=== PATIENT | male | born 1940 | race Caucasian/White ===

== ENCOUNTER 2022-12-12 06:28 | Inpatient (IN) ==
--- NOTE | 2022-11-10 12:29 | PAT Medication Instructions ---
Medication Instructions Date of Service November 10, 2022 Home Medications allopurinol 100 mg tablet 150 mg PO QAM apixaban 5 mg tablet (Eliquis) 5 mg PO HS ascorbic acid (vitamin C) 500 mg tablet (Vitamin C) 500 mg PO QAM celecoxib 200 mg capsule 200 mg PO UD PRN Pain cholecalciferol (vitamin D3) 50 mcg (2,000 unit) capsule (Vitamin D3) 50 mcg PO QAM clopidogrel 75 mg tablet (Plavix) 75 mg PO QAM donepezil 5 mg tablet 5 mg PO HS evolocumab 140 mg/mL subcutaneous pen injector (Repatha SureClick) 140 mg subcut UD furosemide 40 mg tablet (Lasix) 40 mg PO QAM glimepiride 2 mg tablet 2 mg PO QAM losartan 100 mg tablet 100 mg PO HS metoprolol succinate 25 mg tablet,extended release 24 hr 25 mg PO QAM vitamin A-vitamin C-vit E-min tablet 1 tab PO QAM zinc 50 mg tablet 50 mg PO QAM ASK your surgeon for instructions celecoxib 200 mg capsule 200 mg PO UD PRN Pain ASK your prescriber and surgeon apixaban 5 mg tablet (Eliquis) 5 mg PO HS (for spinal anesthesia: will need to hold Eliquis/apixaban at least 72 hours prior to surgery) clopidogrel 75 mg tablet (Plavix) 75 mg PO QAM (for spinal anesthesia: will need to hold Plavix/clopidogrel for at least 7 days prior to surgery) STOP taking 2 weeks before surgery vitamin A-vitamin C-vit E-min tablet 1 tab PO QAM DO NOT take the morning of surgery furosemide 40 mg tablet (Lasix) 40 mg PO QAM ascorbic acid (vitamin C) 500 mg tablet (Vitamin C) 500 mg PO QAM glimepiride 2 mg tablet 2 mg PO QAM zinc 50 mg tablet 50 mg PO QAM cholecalciferol (vitamin D3) 50 mcg (2,000 unit) capsule (Vitamin D3) 50 mcg PO QAM Take morning of surgery With a small sip of water, OTHERWISE NOTHING TO EAT OR DRINK AFTER MIDNIGHT: allopurinol 100 mg tablet 150 mg PO QAM Take evening before surgery losartan 100 mg tablet 100 mg PO HS metoprolol succinate 25 mg tablet,extended release 24 hr 25 mg PO QAM donepezil 5 mg tablet 5 mg PO HS Other Notes CHECK WITH YOUR PRESCRIBER FOR INSTRUCTIONS: evolocumab 140 mg/mL subcutaneous pen injector (Repatha SurePérezick) 140 mg subcut UD If you have any questions please call us at [phone] or [phone] or or [phone]
--- NOTE | 2022-11-17 12:30 | Anesthesiology Consultation ---
Date of Service November 17, 2022 Assessment & Plan (1) Encounter for pre-operative examination: - check BSG am DOS. - upcoming PCP pre-op evaluation 11/24/22. - upcoming cardiology pre-op evaluation 12/05/22. - patient has dementia, is accompanied by caregiver today who will also be pres ent DOS. - Outpatient joint assessment: Patient is currently scheduled for inpatient pathway. If re-evaluated pending system levels during current pandemic/surgeon requests outpatient pathway, patient is not acceptable candidate for outpatient joint program from anesthesia standpoint. Chart Review Chart Review: Pending: Refer to Additional Notes / Consult section and Patient seen in Pre Admission Testing Teaching & Discussion Pre-Anesthesia Teaching/Discussion Notes: Instructed NPO after midnight before surgery, except medications with 15 cc of water. Medication instructions provided according to the PAT guidelines. History Surgery Operation Date: 12/12/22 07:35 Proposed Procedures p Right Total Knee Arthroplasty - Rohan Sánchez DO Height/Weight Height: 5 ft 8 in Weight: 113.9 kg Allergies Allergy/AdvReac Type Severity Reaction Status Date / Time ibuprofen Allergy Unknown HIVES Verified 11/10/22 09:29 NSAIDS (Non-Steroidal Allergy Unknown BUMPS ON Verified 11/10/22 09:29 Anti-Inflamma HAND Medications Home Medications Medication Instructions Recorded Confirmed Last Taken allopurinol 100 mg tablet 150 mg PO QAM 11/10/22 11/10/22 Unknown apixaban 5 mg tablet (Eliquis) 5 mg PO HS 11/10/22 11/10/22 Unknown ascorbic acid (vitamin C) 500 mg 500 mg PO QAM 11/10/22 11/10/22 Unknown tablet (Vitamin C) celecoxib 200 mg capsule 200 mg PO UD PRN Pain 11/10/22 11/10/22 Unknown cholecalciferol (vitamin D3) 50 50 mcg PO QAM 11/10/22 11/10/22 Unknown mcg (2,000 unit) capsule (Vitamin D3) clopidogrel 75 mg tablet (Plavix) 75 mg PO QAM 11/10/22 11/10/22 Unknown donepezil 5 mg tablet 5 mg PO HS 11/10/22 11/10/22 Unknown evolocumab 140 mg/mL subcutaneous 140 mg subcut UD 11/10/22 11/10/22 Unknown pen injector (Repatha SureClick) furosemide 40 mg tablet (Lasix) 40 mg PO QAM 11/10/22 11/10/22 Unknown glimepiride 2 mg tablet 2 mg PO QAM 11/10/22 11/10/22 Unknown losartan 100 mg tablet 100 mg PO HS 11/10/22 11/10/22 Unknown metoprolol succinate 25 mg 25 mg PO QAM 11/10/22 11/10/22 Unknown tablet,extended release 24 hr vitamin A-vitamin C-vit E-min 1 tab PO QAM 11/10/22 11/10/22 Unknown tablet zinc 50 mg tablet 50 mg PO QAM 11/10/22 11/10/22 Unknown Past Medical History Medical History Arthritis Dementia EARLY STAGES. HX DR CAMPBELL SEPTEMBER 04 2022. DOES NOT NEED TO FOLLOW WITH NEUROLOGY. Diabetes NIDDM Frequent UTI HX/NONE RECENT. NO CURRENT S/S. GERD (gastroesophageal reflux disease) occasional, stable per pt Hemorrhoids High cholesterol History of gout HTN (hypertension) variable Poor historian Prostate cancer DX 1 MON AGO..11/09 TESTING AND INJECTION AND BONE SCAN. Sleep apnea on CPAP Patient denies h/o stroke, seizures, heart attack, heart failure, blood clots or blood transfusions. Exercise / Class Metabolic Activity IV < 2 Limit ADL/Bedbound (mainly in wheelchair, when does activity: occasional chest discomfort and shortness of breath, ongoing x several yrs, denies change or worsening) Past Family History Family History Grandmother Family history of diabetes mellitus Mother Family history of diabetes mellitus Past Surgical History Surgical History History of amputation of left foot History of colonoscopy History of endoscopy History of heart valve replacement REMOTE HX History of left knee replacement Past Anesthesia History No Hx of Anesthesia Complications and No Family Hx of Anesthesia Complications History of PONV No Hx of PONV and No Hx of Motion Sickness Social History Smoking Status: Never smoker Do You Dip or Chew Tobacco: No Alcohol type: beer alcohol intake frequency: other Alcohol Intake Frequency Comment: 4+ BEER most days of the week Hx Substance Use: No substance use type: does not use Review of Systems Patient denies fever, chills, cough, wheezing, or palpitations. Physical Exam Vital Signs Vitals BP 160/76 P 60 SP02 96% on RA RESP 17 Physical Full cervical extension range of motion without pain TMD 3.5 finger breadths Mallampati Score 3 Dentition: several front upper implants and several caps/crowns; denies chipped or loose teeth or bridges Lungs: normal respiratory effort. Good air movement, clear throughout to auscultation, no adventitious breath sounds Cardiac: regular rate and rhythm, no murmurs noted Carotid arteries: negative bruit bilat Lab Results Anesthesia Preop Results Results Anesthesia Widget: HA1c 7.2 % (4.5-5.6) H 11/17/22 Urine Color Yellow 11/17/22 Urine Appearance Clear (Clear) 11/17/22 Urine pH 5.0 (4.5-7.5) 11/17/22 Urine Specific [place] 1.010 (1.000-1.030) 11/17/22 Urine Protein Negative (Negative) 11/17/22 Urine Glucose (UA) Negative (Negative) 11/17/22 Urine Ketones Negative (Negative) 11/17/22 Urine Blood Negative (Negative) 11/17/22 Urine Nitrite Negative (Negative) 11/17/22 Urine Bilirubin Negative (Negative) 11/17/22 Urine Urobilinogen Negative (Negative) 11/17/22 Urine Leukocyte Esterase Negative (Negative) 11/17/22 Blood Type AB Positive 11/17/22 Antibody Screen NEGATIVE 11/17/22 Testing Laboratory Results 10/07/2022 WBC: 10.7 H/H: 14/43 PLATELETS: 142 SODIUM: 132 POTASSIUM: 4.3 CHLORIDE: 106 CO2: 20 BUN: 12 CREATININE: 1 GLUCOSE: 195 PT: 14.9 PTT: 33 INR: 1.2 Surgeon's office made aware of elevated A1c. Electrocardiogram Date: 09/06/22 Sinus rhythm, rate 58 bpm Nonspecific T wave abnormality Chest X-Ray Date: 11/17/22 No acute cardiopulmonary findings. Cardiomegaly. COVID-19 Risk Screen Screening Information COVID-19 Screen Date: 11/17/22 Exposure 21 Days Family/Household +COVID Last 21 Days: No Exposure 10 Days Any COVID Exposure Last 10 Days: No Symptoms Last 10 Days Experienced COVID Sx Last 10 Days: No + COVID 0-90 Days COVID + in Last 0-90 Days: No
--- NOTE | 2022-11-17 14:52 | History & Physical Report ---
Date of Service November 17, 2022 date of surgery: 12/12/22 Procedure: Right Total Knee Arthroplasty Surgeon: Rohan Sánchez Assessment & Plan (1) Arthritis of right knee: Plan: Patient presents for preop evaluation prior to his right total knee replacement. He has been having pain in his knee for many years now which is gradually worsened and is now affecting his daily activities. 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 At this point time is failed conservative measures and would like to proceed with a right total knee replacement. He does live alone however does have a caregiver and his son lives next door, did discuss postoperative, he would likely need rehab stay versus nursing facility, they would prefer rehab and if unable to get this approved discussed staying at home and having his caregiver stay with him versus staying with his son next-door. He otherwise has no other questions or concerns. Postoperatively we will resume his Eliquis and Plavix. The risks and benefits have been discussed including, but not limited to, risk of infection, nerve injury, stiffness, loss of motion, failure to improve, etc. Reasonable outcomes and options of treatment were discussed. An explanation of appropriate alternatives to the procedure that may be advantageous were discussed and their risks and benefits, as well as the risks and benefits of not proceeding with treatment. I offered to answer any additional inquiries concerning the treatment involved. All the patient's questions were answered. The patient is agreeable, understanding of the treatment plan and alternatives, and wishes to proceed with the treatment plan. History of Present Illness Chief Complaint: Right knee pain Primary Care Provider: SHERI PCP Nick is an 82-year-old male who presents for preop evaluation prior to right total knee replacement. He states he is having pain in his knee for many years now which is gradually worsened and is now affecting his daily activities. 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 He is limited anti-inflammatory use secondary to using Plavix and Eliquis. Allergies Allergy/AdvReac Type Severity Reaction Status Date / Time ibuprofen Allergy Unknown HIVES Verified 11/10/22 09:29 NSAIDS (Non-Steroidal Allergy Unknown BUMPS ON Verified 11/10/22 09:29 Anti-Inflamma HAND Home Medications Medication Instructions Recorded Confirmed Type allopurinol 100 mg tablet 150 mg PO QAM 11/10/22 11/10/22 History apixaban 5 mg tablet (Eliquis) 5 mg PO HS 11/10/22 11/10/22 History ascorbic acid (vitamin C) 500 mg 500 mg PO QAM 11/10/22 11/10/22 History tablet (Vitamin C) celecoxib 200 mg capsule 200 mg PO UD PRN Pain 11/10/22 11/10/22 History cholecalciferol (vitamin D3) 50 50 mcg PO QAM 11/10/22 11/10/22 History mcg (2,000 unit) capsule (Vitamin D3) clopidogrel 75 mg tablet (Plavix) 75 mg PO QAM 11/10/22 11/10/22 History donepezil 5 mg tablet 5 mg PO HS 11/10/22 11/10/22 History evolocumab 140 mg/mL subcutaneous 140 mg subcut UD 11/10/22 11/10/22 History pen injector (Repatha SureClick) furosemide 40 mg tablet (Lasix) 40 mg PO QAM 11/10/22 11/10/22 History glimepiride 2 mg tablet 2 mg PO QAM 11/10/22 11/10/22 History losartan 100 mg tablet 100 mg PO HS 11/10/22 11/10/22 History metoprolol succinate 25 mg 25 mg PO QAM 11/10/22 11/10/22 History tablet,extended release 24 hr vitamin A-vitamin C-vit E-min 1 tab PO QAM 11/10/22 11/10/22 History tablet zinc 50 mg tablet 50 mg PO QAM 11/10/22 11/10/22 History Past Med/Surg History Medical History Arthritis Dementia EARLY STAGES. HX DR CAMPBELL SEPTEMBER 04 2022. DOES NOT NEED TO FOLLOW WITH NEUROLOGY. Diabetes NIDDM Frequent UTI HX/NONE RECENT. NO CURRENT S/S. GERD (gastroesophageal reflux disease) occasional, stable per pt Hemorrhoids High cholesterol History of gout HTN (hypertension) variable Poor historian Prostate cancer DX 1 MON AGO..11/09 TESTING AND INJECTION AND BONE SCAN. Sleep apnea on CPAP Surgical History History of amputation of left foot History of colonoscopy History of endoscopy History of heart valve replacement REMOTE HX History of left knee replacement Family History Grandmother Family history of diabetes mellitus Mother Family history of diabetes mellitus Social History Smoking Status: Never smoker Do You Dip or Chew Tobacco: No; Hx Substance Use: No Preferred Language: Croatian Communication Ability: Effective Communication Ability Comment: PATIENT REQUESTS CAREGIVER TO HELP WITH PHONE CALL/DOES MAJORITY OF CALL. Crucible Packer Required: No Beliefs That Will Affect Care: None Current Living Situation: Alone Feels Safe at Home: Yes Assistive Devices: CPAP, Hearing Aid - Bilateral and Prosthesis Review of Systems Review of Systems: All systems reviewed & are unremarkable except as noted in HPI & below Constitutional: no fever, no chills and no sweats Respiratory: no cough and no dyspnea Cardiovascular: no chest pain, no dyspnea and no orthopnea Gastrointestinal: no abdominal pain, no nausea and no vomiting Musculoskeletal: as per Subjective / HPI Physical Exam Physical Exam: HT: 5ft 8in WT: 113.9kg Constitutional: WD/WN, vitals as above no acute distress Respiratory: normal respiratory effort, lungs clear to auscultation no respiratory distress, no labored breathing and does not use accessory muscles Cardiovascular: RRR, no murmur, no edema Gastrointestinal (Abdomen): normal bowel sounds, soft, nontender, no hepatosplenomegaly Musculoskeletal: Knee: + knee abnormal to inspection (RIGHT KNEE: ), + effusion (+1 effusion), + limited ROM of knee (ROM 0/3/110), + knee ROM with crepitation, + joint line tenderness (medial joint line) and + Fabienne's sign positive; no deformity, no skin erythema, no ecchymosis, no valgus laxity, no varus laxity, anterior drawer test negative, Fidel's sign negative and pivot shift test negative Results & Data Results & Data Diagnostic Findings Right Knee X-ray: Right knee series showing advanced degenerative changes to the right knee, narrowing of the medial compartment and patello-femoral joint with patellar spurring noted, findings showing joint space narrowing of the medial compartment and patello-femoral joint, osteophyte formation and subchondral sclerosis noted. overall varus alignment. no acute bony pathology noted.
[~2022-12-12 06:28] MED LIST: ACETAMINOPHEN 500 MG TAB PO SCH; BUPIVACAINE 0.5 % 5 MG/1 ML PF 10ML VIAL ONE; CeleBREX 200 MG CAP PO SCH; FAMOTIDINE 20 MG TAB PO SCH; GABAPENTIN 300 MG CAP PO SCH; LR 500ML BOLUS, THEN 15ML/HR IV SCH; METOCLOPRAMIDE HCL 10 MG TABLET PO SCH; ROPIVACAINE 0.5% 5 MG/ML 30 ML VIAL ONE; ROPIVACAINE 0.5% HCL/PF 150 MG, BUPIVACAINE 0.75% MPF 20 ML, EPINEPHrine 30MG/30ML (OR ... INSTIL SCH; TRANEXAMIC ACID 1,000 MG **IV Intra-op IV SCH; TRANEXAMIC ACID 1,000 MG **IV Pre-op IV SCH; ceFAZolin 2000MG 2,000 MG/15 ML SYR IV SCH; dexAMETHasone 4 MG TAB PO SCH
--- NOTE | 2022-12-12 08:06 | History & Physical Bridge Note ---
Date of Service December 12, 2022 History & Physical Bridge Note I have examined the patient, reviewed the History & Physical and in the interval since the performance of the History & Physical I have noted the following changes of clinical significance: no changes noted
[2022-12-12] MEDS ORDERED: fentaNYL citrate PF 100 MCG/2 ML VIAL IV PRN (08:08)
[2022-12-12] MEDS ORDERED: ATROPINE SULFATE 0.1 MG/ML 10ML SYR IV PRN (08:08)
[2022-12-12] MEDS ORDERED: ePHEDrine sulfate 50 MG/ML AMP IV PRN (08:08)
[2022-12-12] MEDS ORDERED: ONDANSETRON INJ 2 MG/ML 2 ML VIAL IV PRN ×2 (08:08→12:50)
[2022-12-12] MEDS ORDERED: MIDAZOLAM HCL 1 MG/ML 2ML VIAL ONE (08:19)
[2022-12-12] MEDS ORDERED: fentaNYL citrate PF 100 MCG/2 ML VIAL ONE (08:19)
[2022-12-12] MEDS ORDERED: LIDOCAINE 2% 2 ML VIAL/AMP(20MG/ML) INFIL ONE (09:29)
[2022-12-12] MEDS ORDERED: PROPOFOL IV EMULSION 10 MG/ML 20 ML VIAL IV ONE (09:29)
--- NOTE | 2022-12-12 10:34 | Operative Report ---
Post Operative Report Pre & Post Diagnosis Operation Date: 12/12/22 08:35 Pre-Op Diagnosis: Right Knee Osteoarthritis Post-Op Diagnosis: Right Knee Osteoarthritis I identified the patient and participated in the time-out.: Yes Procedure Operation Date: 12/12/22 08:35 Actual Procedures p Right Total Knee Arthroplasty, Cemented(Right) utilizing Gutierrez [employer] Nephew journey 2 and en bloc total knee arthroplasty size femur 6 tibia 5 Poly 9 patella 32 kayy Sánchez DO Surgeon Rohan Sánchez DO Steam Flattener Nav CUETO Estimated Blood Loss 5 Findings Consistent with Post-Op Diagnosis Patient presents with severe end-stage tricompartmental DJD of his right knee with a 17 degree flexion contracture varus alignment subchondral sclerosis marginal osteophytes subchondral cystic changes moderate to large effusion Specimens Bone card Drains Medium bore Hemovac Anesthesia Type MAC Spinal Regional Complications none Disposition Accompanied Patient To Recovery: No Disposition: Recovery Room Indications Patient presents with severe end-stage DJD with pain to the point he is unable to transfer ACL a left [id number] amputation severe end-stage tricompartmental DJD is failed attempted conservative management occluding physical therapy's antiinflammatories corticosteroid injections viscosupplementation's bracing and presents today for right total knee Description of Procedure After proper prepping and draping of the Right lower extremity anterior midline incision was made over the region of the extensor extensor mechanism after meticulous hemostasis was obtained and maintained in subcutaneous tissues a medial parapatellar incision was made The patella was subluxed lateralward the medial lateral gutter were cleaned from any hypertrophic synovitis and scar tissue of the distal femoral block was placed and the distal femoral osteotomy cut was made subsequently the chamfers anterior and posterior osteotomy cuts were made utilizing the 4-in-1 block the tibia was subsequently subluxed anteriorward medial and ateral meniscal remnants were excised in their entirety remnants of the anterior and posterior cruciate ligaments were excised in their entirety excellent exposure of the proximal tibia was obtained the tibial osteotomy guide was placed on the proximal tibial osteotomy cut was made once again the knee was irrigated with copious amounts of sterile saline solution the patella was subsequently everted lateralward thickened scar tissue around the patella was removed the patella was subsequently cut utilizing a freehand technique and was drilled prepared for final preparation and placement of patella socially flexion-extension gaps were checked and the equal and symmetric trials were placed to the appropriate femoral and tibial trials with poly-spacer being placed for equal flexion and extension gaps and full range of motion including extension to 0 and flexion to 140 the trial components after having been taken to recovery range of motion was subsequently removed meticulous hemostasis was obtained and maintained subsequently a knee block injection of joint cocktail including ropivacaine 0.5% 150 mg. Bupivacaine 0.5% epinephrine 1-200,030 mL's toradol 30 mg dexamethasone 4 mg ketamine 10 mg clonidine 100 micrograms normal saline solution 30 mg was infiltrated into the soft tissues of the posterior knee medial lateral gutters and periosteal synovium special attention was paid to protect neurovascular structures at all times subsequently trial components having been removed the knee was irrigated with sterile saline solution. debris was removed the proximal tibia was subsequently prepared and was made ready for the placement of the tibial component tibial component was also cemented and tamped into position the femoral component was subsequently placed and cemented in the position the patellar component was subsequently cemented in position because hemostasis once again obtained and maintained wound having been thoroughly irrigated with debridement and debridement lavage was performed as well as a medial parapatellar incision closed with #1 Vicryl in interrupted fashion subcutaneous was closed with #2 Vicryl skin was closed with skin clips. PA-C was necessary for prepping and drapping as well as wound closure of deep fascia Sub cutaneous tissue and skin and was necessary for the case. A sterile compressive dressing was placed patient was taken to recovery in stable condition of report dictated by Gonzalo I attest to the content of the Intraoperative Record and any orders documented therein. Any exceptions are noted below.Due to the complex nature of the procedure, the entire surgery was performed with the operational assistance of Nav CUETO. The recruitment and outreach assistant, under direct supervision, was involved in the actual performance of all aspects of the surgical procedure including hemostasis, tissue retraction and incision, instrument management, patient positioning, and wound closure. I attest to the content of the Intraoperative Record and any orders documented therein. Any exceptions are noted below.
--- NOTE | 2022-12-12 11:56 | XRay Report ---
TWO VIEWS RIGHT KNEE CLINICAL HISTORY: Postoperative examination. FINDINGS: AP and crosstable lateral portable views of the right knee are obtained. A right knee arthr oplasty is in near anatomic alignment. There has been undersurface remodeling of the patella. No acut e fracture is seen. There are expected postoperative changes around the knee including skin clips, a surgical drain, soft tissue edema, and subcutaneous gas. Advanced atherosclerotic calcification is se en in the popliteal artery. Clips are seen in the upper calf. IMPRESSION: Expected postoperative changes status post right knee arthroplasty. No acute fracture is seen. ACT 112: Negative or not required by law. Electronically signed by: Kaleb Becerra M.D. 12/12/2022 11:55 AM
[2022-12-12] MEDS ORDERED: HYDROmorphone INJ 0.5 MG/0.5 ML SYR IV PRN (12:50)
[2022-12-12] MEDS ORDERED: MAGNESIUM HYDROXIDE SUSP 30 ML UDC PO PRN (12:50)
[2022-12-12] MEDS ORDERED: diphenhydrAMINE 50 MG/ML VIAL IV PRN (12:50)
[2022-12-12] MEDS ORDERED: NALOXONE HCL 0.4 MG/1 ML VIAL/CARP IV PRN (12:50)
[2022-12-12] MEDS ORDERED: bisacodyL 10 MG SUPP PR PRN (12:50)
[2022-12-12] MEDS ORDERED: TAMSULOSIN HCL 0.4 MG CAP PO PRN (12:50)
[2022-12-12] MEDS: SODIUM CHLORIDE 0.9% 1000ML 1,000 ML IV SCH ×2 (13:05→23:35)
[2022-12-12] MEDS: General Order Problem(s) SCH ×5 (13:07→13:13)
[2022-12-12] MEDS: ALLERGY Noted to ORDERED Medication SCH ×4 (13:07→13:13)
[2022-12-12] MEDS ORDERED: PHARMACY GLYCEMIC MGMT CONSULT PRN (13:09)
[2022-12-12] MEDS ORDERED: LANTUS PER UNIT CHARGE SC ONE ×2 (14:00→17:15)
[2022-12-12] MEDS ORDERED: GLUCOSE 40% GEL 15 GM TUBE PO PRN (14:00)
[2022-12-12] MEDS ORDERED: GLUCAGON FOR INJ 1 MG VIAL IM PRN (14:00)
[2022-12-12] MEDS ORDERED: GLUCOSE 10 TAB/TUBE PO PRN (14:00)
[2022-12-12] MEDS ORDERED: INSULIN ASPART PER UNIT CHARGE SC ONE (14:00)
[2022-12-12] MEDS ORDERED: CARBOHYDRATES FOR HYPOGLYCEMIA PO PRN (14:00)
[2022-12-12] MEDS ORDERED: DEXTROSE 50% 50 ML SYRINGE IV PRN (14:00)
--- NOTE | 2022-12-12 14:25 | Anesthesiology Progress Note ---
Date of Service December 12, 2022 Anesthesia Post Procedure Vital Signs Vital Signs: Temp Pulse Pulse Pulse Resp BP Pulse Ox 12/12/22 13:55 97.5 F L 74 16 142/63 H 96 12/12/22 12:55 97.7 F 70 18 136/65 98 12/12/22 13:25 97.7 F 74 16 147/68 H 97 12/12/22 12:30 72 24 147/62 H 97 12/12/22 12:15 66 18 139/56 L 95 12/12/22 12:00 75 23 137/65 95 12/12/22 11:55 64 19 142/54 H 96 12/12/22 11:45 97.7 F 67 16 137/49 L 96 12/12/22 11:35 70 18 143/62 H 97 12/12/22 11:25 66 18 131/57 L 95 12/12/22 11:15 74 20 122/60 96 12/12/22 11:05 96.8 F L 74 16 120/49 L 99 12/12/22 07:01 12/12/22 07:01 98.2 F 67 20 152/72 H 97 O2 Del Method O2 Flow Rate 12/12/22 13:55 Room Air 12/12/22 12:55 Room Air 12/12/22 13:25 Room Air 12/12/22 12:30 Room Air 12/12/22 12:15 Room Air 12/12/22 12:00 Room Air 12/12/22 11:55 Room Air 12/12/22 11:45 Room Air 12/12/22 11:35 Room Air 12/12/22 11:25 Room Air 12/12/22 11:15 Room Air 12/12/22 11:05 Oxymask 7 12/12/22 07:01 Room Air, CPAP 12/12/22 07:01 Room Air, CPAP Pain Intensity Right Knee: Pain Intensity: 8 Transfer of Care Handoff Completed per policy Notes Mental Status: alert / awake / arousable and participated in evaluation Patient Amnestic to Procedure: Yes Nausea / Vomiting: adequately controlled Pain: adequately controlled Airway Patency, RR, SpO2: stable & adequate BP & HR: stable & adequate Hydration State: stable & adequate Neuraxial Anesthesia: was administered and sensory block is resolving Anesthetic Complications: no major complications apparent and Pt Satisfied with anesthetic care
--- NOTE | 2022-12-12 14:51 | Pharmacy Report ---
Pharmacy Glycemic Short Note 2 - Date of Service December 12, 2022 - Glycemic Short BSG Results (Last 24 hours): 12/12/22 12/12/22 12/12/22 06:58 11:06 13:23 POC Glucose 152 H 171 H 359 H* 12/12/22 13:25 POC Glucose 377 H* OUTPATIENT ANTIDIABETIC REGIMEN: * Glimepiride 2mg PO qAM * HbA1c: 7.2% (11/17/22) ASSESSMENT: * Mr Carter is an 82yo diabetic M, POD 0 s/p R TKA w/ Dr Sánchez this morning. * Pt received a dose of PO DXM pre-operatively, which is likely to contribute to hyperglycemia. * Reportedly, pt had some tommy evangelina and crackers in PACU. On arrival to floor, pt's BSG was 377mg/dL. * Pt was ordered doses of Lantus and Novolog on admission. * Pharmacy will continue to follow and adjust regimen as indicated. PLAN FOR INPATIENT GLYCEMIC CONTROL: * Hold outpatient oral diabetes medications * Basal insulin * Lantus 10 units SQ x1 dose on admission * will re-eval 12/13 * Bolus insulin * NovoLog per scale ACHS or Q6hrs while NPO * Goal Range: Low 120 mg/dL - High 150 mg/dL * Correction Factor: 30 mg/dL/unit * Nutritional / Prandial insulin per carb ratio of 1 unit per 10 grams CHO consumed
[2022-12-12] MEDS: ceFAZolin 2000MG 2,000 MG/15 ML SYR IV SCH (16:22)
--- NOTE | 2022-12-12 17:03 | Hospitalist Consultation ---
Date of Consultation December 12, 2022 Assessment & Plan (1) Arthritis of right knee: post op day #0 total cemented right knee arthroplasty pain medications per primary team PT and OT (2) Diabetes: Chronic and stable Last HgbA1C was 7.2 in october 2022 Post operatively BS elevated likely secondary to dexamethasone preoperatively Primary team consulted pharmacy for glycemic control Discussed a carb consistent diet and also decrease or stop ETOH use as well (3) HTN (hypertension): Chronic and stable Continue Cozaar 100mg, Metoprolol 25mg, Lasix 40mg (4) Sleep apnea: Continue CPAP (5) GERD (gastroesophageal reflux disease): Chronic and stable Pepcid (6) Alcohol abuse: Patient admits to drinking 4+ beers per day He states occasionally will go 1 -2 days without drinking and has never had alcohol withdrawal in the past Will order AWSS with prn ativan Supervising Physician Co-Signing Physician Notes I discussed the case with Brittany Darling PA-C and reviewed the chart. I did not see or examine the patient. I agree with the plan above. History of Present Illness Reason for Consultation: post operative management Requesting Physician: Dr Sánchez Attending Physician: Rohan Sánchez, History of Present Illness Nick Carter is a 82 year old male with a past medical history of Prostate cancer, HT, DM, GERD, HLD, sleep apnea on CPAP, dementia and OA. 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 Patient had right total knee arthroplasty - cemented today EBL 5. A consult was placed with the hospitalist service for medical management. Patient is sitting up in the recliner and states he is overall feeling well. He denies any chest pain, abdominal pain, nausea, SOB, cough, dyspnea, headache, or tremors. He admits to drinking 4 beers per day but states he does occasionally go without having a beer at times and never has had any withdrawal. He states he had a left knee replacement in the . He ate a heart healthy carb consistent diet. His last HgbA1C was 7.2 in October. Allergies Allergy/AdvReac Type Severity Reaction Status Date / Time ibuprofen Allergy Unknown HIVES Verified 12/12/22 06:58 NSAIDS (Non-Steroidal Allergy Unknown BUMPS ON Verified 12/12/22 06:58 Anti-Inflamma HAND Home Medications Medication Instructions Recorded Confirmed Type allopurinol 100 mg tablet 150 mg PO QAM 11/10/22 12/12/22 History apixaban 5 mg tablet (Eliquis) 5 mg PO HS 11/10/22 12/12/22 History ascorbic acid (vitamin C) 500 mg 500 mg PO QAM 11/10/22 12/12/22 History tablet (Vitamin C) celecoxib 200 mg capsule 200 mg PO UD PRN Pain 11/10/22 12/12/22 History cholecalciferol (vitamin D3) 50 50 mcg PO QAM 11/10/22 12/12/22 History mcg (2,000 unit) capsule (Vitamin D3) clopidogrel 75 mg tablet (Plavix) 75 mg PO QAM 11/10/22 12/12/22 History donepezil 5 mg tablet 5 mg PO HS 11/10/22 12/12/22 History evolocumab 140 mg/mL subcutaneous 140 mg subcut UD 11/10/22 12/12/22 History pen injector (Repatha SureClick) furosemide 40 mg tablet (Lasix) 40 mg PO QAM 11/10/22 12/12/22 History glimepiride 2 mg tablet 2 mg PO QAM 11/10/22 12/12/22 History losartan 100 mg tablet 100 mg PO HS 11/10/22 12/12/22 History metoprolol succinate 25 mg 25 mg PO QAM 11/10/22 12/12/22 History tablet,extended release 24 hr vitamin A-vitamin C-vit E-min 1 tab PO QAM 11/10/22 12/12/22 History tablet zinc 50 mg tablet 50 mg PO QAM 11/10/22 12/12/22 History Patient History Medical History (Updated 12/12/22 @ 17:09 by Maru Darling PA-C) Arthritis Dementia EARLY STAGES. HX DR CAMPBELL SEPTEMBER 04 2022. DOES NOT NEED TO FOLLOW WITH NEUROLOGY. Diabetes NIDDM Frequent UTI HX/NONE RECENT. NO CURRENT S/S. GERD (gastroesophageal reflux disease) occasional, stable per pt Hemorrhoids High cholesterol History of gout HTN (hypertension) variable Poor historian Prostate cancer DX 1 MON AGO..11/09 TESTING AND INJECTION AND BONE SCAN. Sleep apnea on CPAP Surgical History (Updated 12/13/22 @ 07:19 by Carlos Gonzalez PA-C) History of amputation of left foot History of colonoscopy History of endoscopy History of heart valve replacement REMOTE HX History of left knee replacement Family History Grandmother Family history of diabetes mellitus Mother Family history of diabetes mellitus Social History Smoking Status: Never smoker Do You Dip or Chew Tobacco: No; Hx Substance Use: No Preferred Language: Indonesian Communication Ability: Effective Communication Ability Comment: PATIENT REQUESTS CAREGIVER TO HELP WITH PHONE CALL/DOES MAJORITY OF CALL. Wooden Fence Erector Required: No Beliefs That Will Affect Care: None Current Living Situation: Alone Other Information That Helps Us Care for You: Yes (WANT[facility] FOR RE[facility]/PT DISCUSSED W/SURGEON OFFICE.) Feels Safe at Home: Yes Assistive Devices: CPAP, Hearing Aid - Bilateral and Prosthesis Review of Systems Constitutional: no fever, no chills, no sweats and no weakness Eyes: no blind spots, no diplopia, no photophobia and no spots in vision Respiratory: no cough, no chest congestion, no dyspnea and no hemoptysis Cardiovascular: no chest pain, no dyspnea, no lightheadedness, no edema and no calf pain Gastrointestinal: no abdominal pain, no nausea, no vomiting, no dysphagia and no change in bowel habits Musculoskeletal: no back pain, no neck pain and no stiffness Integumentary: no rash, no lesions and no new lesions Endocrine: no polydipsia, no polyphagia and no polyuria Physical Exam Constitutional: WD/WN, vitals as above Neck: trachea midline, no thyromegaly Respiratory: normal respiratory effort, lungs clear to auscultation Cardiovascular: Rate/Rhythm: regular rate and regular rhythm Heart Sounds: normal S1 and normal S2 Gastrointestinal (Abdomen): Inspection/Auscultation: + abdomen distended and normal bowel sounds Percussion/Palpation: abdomen soft; abdomen nontender Skin: surgical dressing left knee clean and dry Psychiatric: A+Ox3, euthymic affect Results & Data Results & Data Vital Signs (Past 12 Hours) Vital Signs Temp Pulse Pulse Pulse Resp BP Pulse Ox 12/12/22 15:55 36.5 C 77 18 149/63 H 97 12/12/22 14:55 36.4 C L 75 18 145/62 H 96 12/12/22 13:55 36.4 C L 74 16 142/63 H 96 12/12/22 12:55 36.5 C 70 18 136/65 98 12/12/22 13:25 36.5 C 74 16 147/68 H 97 12/12/22 12:30 72 24 147/62 H 97 12/12/22 12:15 66 18 139/56 L 95 12/12/22 12:00 75 23 137/65 95 12/12/22 11:55 64 19 142/54 H 96 12/12/22 11:45 36.5 C 67 16 137/49 L 96 12/12/22 11:35 70 18 143/62 H 97 12/12/22 11:25 66 18 131/57 L 95 12/12/22 11:15 74 20 122/60 96 12/12/22 11:05 36.0 C L 74 16 120/49 L 99 12/12/22 07:01 12/12/22 07:01 36.8 C 67 20 152/72 H 97 O2 Del Method O2 Flow Rate 12/12/22 15:55 Room Air 12/12/22 14:55 Room Air 12/12/22 13:55 Room Air 12/12/22 12:55 Room Air 12/12/22 13:25 Room Air 12/12/22 12:30 Room Air 12/12/22 12:15 Room Air 12/12/22 12:00 Room Air 12/12/22 11:55 Room Air 12/12/22 11:45 Room Air 12/12/22 11:35 Room Air 12/12/22 11:25 Room Air 12/12/22 11:15 Room Air 12/12/22 11:05 Oxymask 7 12/12/22 07:01 Room Air, CPAP 12/12/22 07:01 Room Air, CPAP Laboratory Results Abnormal lab results 12/12/22 12/12/22 12/12/22 Range/Units 06:58 11:06 13:23 POC Glucose 152 H 171 H 359 H* (70-99) mg/dl 12/12/22 12/12/22 12/12/22 Range/Units 13:25 17:00 17:02 POC Glucose 377 H* 454 H* 411 H* (70-99) mg/dl Diagnostic Findings Knee X-Ray 12/12/22 11:11 TWO VIEWS RIGHT KNEE CLINICAL HISTORY: Postoperative examination. FINDINGS: AP and crosstable lateral portable views of the right knee are obtained. A right knee arthroplasty is in near anatomic alignment. There has been undersurface remodeling of the patella. No acute fracture is seen. There are expected postoperative changes around the knee including skin clips, a surgical drain, soft tissue edema, and subcutaneous gas. Advanced atherosclerotic calcification is seen in the popliteal artery. Clips are seen in the upper calf. IMPRESSION: Expected postoperative changes status post right knee arthroplasty. No acute fracture is seen. ACT 112: Negative or not required by law. Electronically signed by: Kaleb Becerra M.D. 12/12/2022 11:55 AM PG Care Time/CCT Total # of Minutes Spent Total Time Spent with Patient: Total time spent is greater than 50% in coordination of care (as documented) at patient's floor/unit and/or counseling patient: Coding Level of Care Code 34076 IN/OBS CONSULT LVL 3,45M Diagnoses Arthritis of right knee M17.11 Diabetes E11.9 HTN (hypertension) I10 Sleep apnea G47.30 GERD (gastroesophageal reflux disease) K21.9 Alcohol abuse F10.10
[2022-12-12] MEDS: INSULIN ASPART PER UNIT CHARGE SC SCH ×2 (17:17→21:40)
[2022-12-12] MEDS ORDERED: LORazepam 2 MG/1 ML VIAL IV PRN (18:24)
[2022-12-12] MEDS ORDERED: INSULIN ASPART PER UNIT CHARGE SC SCH (19:15)
[2022-12-12] MEDS: DOCUSATE SODIUM 100 MG CAP PO SCH (21:42)
[2022-12-12] MEDS: SENNA 8.6 MG TAB PO SCH (21:42)
[2022-12-12] MEDS: DONEPEZIL HCL 5 MG TAB PO SCH (21:42)
[2022-12-12] MEDS: LOSARTAN POTASSIUM 50 MG TAB PO SCH (21:43)
[2022-12-13] MEDS: INSULIN ASPART PER UNIT CHARGE SC SCH ×6 (00:26→20:56)
[2022-12-13] MEDS: ceFAZolin 2000MG 2,000 MG/15 ML SYR IV SCH (00:27)
[2022-12-13 06:34] LABS: Hematocrit (blood only) 37.1 % (42.0-52.0); Mean Corpuscular Hemoglobin 31.8 pg (25.0-34.0); Mean Corpuscular Volume 90.7 fL (80.0-100.0); Mean Platelet Volume 11.4 fL (9.4-12.4); Platelet Count 144 K/uL (130-400); RDW Coefficient of Variation 12.8 % (11.5-14.5); RDW Standard Deviation 42.5 fL (36.4-46.3); Red Blood Count 4.09 M/uL (4.70-6.10); White Blood Count 14.82 K/ul (4.8-10.8)
[2022-12-13 07:06] LABS: Albumin Globulin Ratio 1.4 (0.9-2); Albumin Level 3.4 gm/dl (3.4-5.0); BUN Creatinine Ratio 20.8 (10-20); Bilirubin Direct 0.2 mg/dl (0-0.2); Bilirubin,Total 0.7 mg/dl (0.2-1.0); Calcium 8.9 mg/dl (8.6-10.3); Creatinine Clr Calc Pharmacy 55.1 ml/min; Est GFR (African American) 61.3 ml/min; Est GFR (Non-African American) 52.9 ml/min; Globulin 2.5 gm/dl (2.5-4.0); Potassium 4.8 mmol/L (3.5-5.1); Total Protein 5.9 gm/dl (6.0-8.3)
--- NOTE | 2022-12-13 07:22 | Orthopedic Progress Note ---
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 will benefit from rehab Admission and Anticipated Discharge Date Admission Date: December 12, 2022 Subjective POD #1 s/p Right TKA Review of Systems Constitutional: no fever, no chills and no sweats Respiratory: no cough and no dyspnea Cardiovascular: no chest pain and no dyspnea Gastrointestinal: no abdominal pain, no nausea and no vomiting Physical Exam Physical Exam: Vital Signs Temp 36.4 C L 12/13/22 06:47 Pulse 85 12/13/22 06:47 Resp 18 12/13/22 06:47 BP 153/62 H 12/13/22 06:47 Pulse Ox 96 12/13/22 06:47 O2 Del Method Room Air 12/13/22 06:47 O2 Flow Rate 7 12/12/22 11:05 Intake & Output 12/12/22 12/13/22 12/13/22 18:59 06:59 18:59 Intake Total 1400 / 2400 1000 / 2400 Output Total 380 / 520 140 / 520 40 / 40 Balance 1020 / 1880 860 / 1880 -40 / -40 Weight 115 kg Intake: IV 200 / 1200 1000 / 1200 Lactated Ringe r's 1,000 ml @ 15 0 / 0 mls/hr IV .Q24 H [facility] Rx#: [id number] Sodium Chlorid e 0.9% 1000ML 1, 1000 / 1000 000 ml @ 100 m ls/hr IV .Q10H [facility] Rx#:[id number] Tranexamic Aci d / 0.7% NaCl 1, 200 / 200 000 mg In 100 ml @ 600 mls/hr IV TODAY@0600 [facility] Rx#:[id number] IV Perioperative 1000 / 1000 Oral 200 / 200 Output: Urine 300 / 300 Estimated Blood Loss 5 / 5 Drain Output 75 / 215 140 / 215 40 / 40 Right Knee Hem ovac #1 75 / 215 140 / 215 40 / 40 Other: # Unmeasured Voi ds 1 Weight Measureme nt Method Standing Scale Constitutional: WD/WN, vitals as above Musculoskeletal: Right Leg: NVDI, calf SNT, negative osmani sign. DP palpable, able to wiggle toes/ankle movement without difficulty. dressing clean dry and intact. Results & Data Vital Signs (Past 12 Hours) Vital Signs Temp Pulse Pulse Resp BP BP Pulse Ox 12/13/22 06:47 36.4 C L 85 18 153/62 H 96 12/13/22 04:00 36.4 C L 69 18 153/62 H 96 12/13/22 00:00 36.5 C 74 18 150/74 H 96 12/12/22 19:30 12/12/22 19:56 36.5 C 90 18 157/70 H 96 O2 Del Method 12/13/22 06:47 Room Air 12/13/22 04:00 CPAP 12/13/22 00:00 Room Air 12/12/22 19:30 Room Air 12/12/22 19:56 Room Air Laboratory Results Laboratory Results WBC 14.82 K/ul (4.8-10.8) H 12/13/22 05:49 RBC 4.09 M/uL (4.70-6.10) L 12/13/22 05:49 Hgb 13.0 g/dl (14.0-18.0) L 12/13/22 05:49 Hct 37.1 % (42.0-52.0) L 12/13/22 05:49 MCV 90.7 fL (80.0-100.0) 12/13/22 05:49 MCH 31.8 pg (25.0-34.0) 12/13/22 05:49 MCHC 35.0 g/dL (32.0-36.0) 12/13/22 05:49 RDW Std Deviation 42.5 fL (36.4-46.3) 12/13/22 05:49 RDW Coeff of Asad 12.8 % (11.5-14.5) 12/13/22 05:49 Plt Count 144 K/uL (130-400) 12/13/22 05:49 MPV 11.4 fL (9.4-12.4) 12/13/22 05:49 Sodium 135 mmol/L (136-145) L 12/13/22 05:49 Potassium 4.8 mmol/L (3.5-5.1) 12/13/22 05:49 Chloride 104 mmol/L (98-107) 12/13/22 05:49 Carbon Dioxide 25 mmol/L (21-32) 12/13/22 05:49 Anion Gap 6 (3-11) 12/13/22 05:49 BUN 26 mg/dl (6-23) H 12/13/22 05:49 Creatinine 1.25 mg/dl (0.6-1.4) 12/13/22 05:49 Est Cr Clr Drug Dosing 55.1 ml/min 12/13/22 05:49 Est GFR ( Amer) 61.3 ml/min 12/13/22 05:49 Est GFR (Non-Af Amer) 52.9 ml/min 12/13/22 05:49 BUN/Creatinine Ratio 20.8 (10-20) H 12/13/22 05:49 Glucose 165 mg/dl (70-99(Fasting)) H 12/13/22 05:49 POC Glucose 158 mg/dl (70-99) H 12/13/22 06:50 Calcium 8.9 mg/dl (8.6-10.3) 12/13/22 05:49 Total Bilirubin 0.7 mg/dl (0.2-1.0) 12/13/22 05:49 Direct Bilirubin 0.2 mg/dl (0-0.2) 12/13/22 05:49 AST 19 U/L (13-39) 12/13/22 05:49 ALT 9 U/L (7-52) 12/13/22 05:49 Alkaline Phosphatase 44 U/L (34-104) 12/13/22 05:49 Total Protein 5.9 gm/dl (6.0-8.3) L 12/13/22 05:49 Albumin 3.4 gm/dl (3.4-5.0) 12/13/22 05:49 Globulin 2.5 gm/dl (2.5-4.0) 12/13/22 05:49 Albumin/Globulin Ratio 1.4 (0.9-2) 12/13/22 05:49 Folate 8.92 ng/ml (>5.38) 12/13/22 05:49 SARS-CoV-2, RNA, NAAT NEGATIVE (NEGATIVE) 12/12/22 Unknown Impressions Knee X-Ray 12/12/22 11:11 TWO VIEWS RIGHT KNEE CLINICAL HISTORY: Postoperative examination. FINDINGS: AP and crosstable lateral portable views of the right knee are obtained. A right knee arthroplasty is in near anatomic alignment. There has been undersurface remodeling of the patella. No acute fracture is seen. There are expected postoperative changes around the knee including skin clips, a surgical drain, soft tissue edema, and subcutaneous gas. Advanced atherosclerotic calcification is seen in the popliteal artery. Clips are seen in the upper calf. IMPRESSION: Expected postoperative changes status post right knee arthroplasty. No acute fracture is seen. ACT 112: Negative or not required by law. Electronically signed by: Kaleb Becerra M.D. 12/12/2022 11:55 AM
[2022-12-13] MEDS: MULTIVITAMIN TAB PO SCH (07:26)
[2022-12-13] MEDS: METOPROLOL SUCC 25MG EXT REL TAB PO SCH (07:26)
[2022-12-13] MEDS: allopurinoL 100 MG TAB PO SCH (07:26)
[2022-12-13] MEDS: FUROSEMIDE 40 MG TAB PO SCH (07:27)
[2022-12-13] MEDS: ASCORBIC ACID 500 MG TAB PO SCH (07:27)
[2022-12-13] MEDS: DOCUSATE SODIUM 100 MG CAP PO SCH ×2 (07:27→20:59)
[2022-12-13] MEDS: CHOLECALCIFEROL 1,000 UNITS 25 MCG TAB PO SCH (07:27)
[2022-12-13] MEDS: ZINC SULFATE 220 MG CAPSULE PO SCH (07:28)
[2022-12-13] MEDS ORDERED: GLIMEPIRIDE 2 MG TAB PO SCH (09:00)
[2022-12-13] MEDS ORDERED: CLOPIDOGREL BISULFATE 75 MG TAB PO SCH (09:00)
[2022-12-13] MEDS ORDERED: LANTUS PER UNIT CHARGE SC SCH (09:00)
[2022-12-13] MEDS ORDERED: NON-FORMULARY MEDICATION (Vitamin A-Vitamin C-Vit E-Min Tablet) PO SCH (09:00)
[2022-12-13] MEDS ORDERED: APIXABAN 5 MG TABLET PO ONE (09:00)
--- NOTE | 2022-12-13 13:20 | Pharmacy Report ---
Pharmacy Glycemic Short Note 2 - Date of Service December 13, 2022 - Glycemic Short BSG Results (Last 24 hours): 12/12/22 12/12/22 12/12/22 13:23 13:25 17:00 Glucose POC Glucose 359 H* 377 H* 454 H* 12/12/22 12/12/22 12/12/22 17:02 19:39 21:05 Glucose POC Glucose 411 H* 325 H* 351 H* 12/13/22 12/13/22 12/13/22 00:11 04:17 05:49 Glucose 165 H POC Glucose 229 H 198 H 12/13/22 12/13/22 06:50 11:57 Glucose POC Glucose 158 H 297 H OUTPATIENT ANTIDIABETIC REGIMEN: * Glimepiride 2mg PO qAM * HbA1c: 7.2% (11/17/22) ASSESSMENT: 12/13 * Patient has been requiring much more insulin than was originally anticipated. * With supplemental Lantus and aggressive Novolog coverage overnight, BSGs did improve this morning. Pre-lunch BSG elevated again, however. * Would expect that the effects of oral DXM should have worn off by now. If BSG remains elevated at dinner-time, will provide another supplemental dose of Lantus. 12/12 * Mr Carter is an 82yo diabetic M, POD 0 s/p R TKA w/ Dr Sánchez this morning. * Pt received a dose of PO DXM pre-operatively, which is likely to contribute to hyperglycemia. * Reportedly, pt had some tommy evangelina and crackers in PACU. On arrival to floor, pt's BSG was 377mg/dL. * Pt was ordered doses of Lantus and Novolog on admission. * Pharmacy will continue to follow and adjust regimen as indicated. PLAN FOR INPATIENT GLYCEMIC CONTROL: * Hold outpatient oral diabetes medications * Basal insulin * Lantus 30 units total received post-op yesterday * Lantus 10 units SQ x1 this morning. Give another 10 units with dinner if BSG remains >200mg/dL. * will re-eval in AM * Bolus insulin * NovoLog per scale ACHS or Q6hrs while NPO * Goal Range: Low 120 mg/dL - High 150 mg/dL * Correction Factor: 20 mg/dL/unit * Nutritional / Prandial insulin per carb ratio of 1 unit per 7 grams CHO consumed
--- NOTE | 2022-12-13 13:55 | Hospitalist Progress Note ---
Date of Service December 13, 2022 Assessment & Plan (1) Arthritis of right knee: Plan: Acute/stable - post op day #1 total cemented right knee arthroplasty - pain medications per primary team - PT and OT eval - home v rehab - DVT ppx will be covered with resumption of Eliquis - Bowel regimen - Recommend resumption of Plavix 48 hours post op (2) Diabetes: Plan: Chronic and stable - Last HgbA1C was 7.2 in october 2022 - Post operatively BS elevated likely secondary to dexamethasone preoperatively - Primary team consulted pharmacy for glycemic control - Discussed a carb consistent diet and also decrease or stop ETOH use as well (3) HTN (hypertension): Plan: H/o HTN + paroxysmal Afib - Chronic and stable - Continue Cozaar 100mg, Metoprolol 25mg, Lasix 40mg - Continue Eliquis 5mg BID (4) Sleep apnea: Plan: Chronic/stable - Continue CPAP (5) GERD (gastroesophageal reflux disease): Plan: Chronic and stable - Continue Pepcid (6) Alcohol abuse: Plan: Chronic/stable - Patient admits to drinking 6+ beers 4 days a week - He states occasionally will go 1 -2 days without drinking and has never had alcohol withdrawal in the past - AWSS ordered with prn ativan Plan No additional recommendations at this time. Will sign off as patient is medically stable for discharge once dispo has been determined (home with home health v rehab). Please contact if any acute needs should arise while he remains in house. Thank you for allowing us to participate in the care of your patient. Plan to be d/w Dr. Hurt. Admission and Anticipated Discharge Date Admission Date: December 12, 2022 Subjective Patient seen on daily rounds this morning. His knee pain is adequately controlled. Denies chest pain or dyspnea. Physical Exam Physical Exam: GENERAL: 82 yo well-developed, well-nourished. AAOx3. NAD. LUNGS: Clear to auscultation bilaterally w/o W/R/R. CARDIOVASCULAR: Regular rate and rhythm ABDOMEN: Soft, non-tender and non-distended. BS normoactive x 4 quad. EXTREMITIES: s/p BKA on L. R knee is dressed and wrapped in stephane. No obvious drains. Neg osmani's sign. Pulses intact. No calf tenderness. Results & Data Results & Data Vital Signs (Past 12 Hours) Vital Signs Temp Pulse Pulse Resp BP BP Pulse Ox 12/13/22 11:25 36.5 C 64 18 168/61 H 177/67 H 98 12/13/22 06:47 36.4 C L 85 18 153/62 H 96 12/13/22 04:00 36.4 C L 69 18 153/62 H 96 O2 Del Method 12/13/22 11:25 Room Air 12/13/22 06:47 Room Air 12/13/22 04:00 CPAP Laboratory Results 12/13/22 05:49 12/13/22 05:49 PG Care Time/CCT Total # of Minutes Spent Total Time Spent with Patient: Total time spent is greater than 50% in coordination of care (as documented) at patient's floor/unit and/or counseling patient: Coding Level of Care Code 57756 SUB INP/OBS CARE 2/35MIN Diagnoses Arthritis of right knee M17.11 Diabetes E11.9 HTN (hypertension) I10 Sleep apnea G47.30 GERD (gastroesophageal reflux disease) K21.9 Alcohol abuse F10.10
[2022-12-13] MEDS: oxyCODONE HCL IR 5 MG TAB (IMMEDIATE RELEASE) PO PRN (16:20)
[2022-12-13] MEDS ORDERED: LANTUS PER UNIT CHARGE SC ONE ×2 (16:30→20:30)
[2022-12-13] MEDS: APIXABAN 5 MG TABLET PO SCH (20:59)
[2022-12-13] MEDS: SENNA 8.6 MG TAB PO SCH (20:59)
[2022-12-13] MEDS: DONEPEZIL HCL 5 MG TAB PO SCH (20:59)
[2022-12-13] MEDS: LOSARTAN POTASSIUM 50 MG TAB PO SCH (21:00)
[2022-12-14] MEDS: oxyCODONE HCL IR 5 MG TAB (IMMEDIATE RELEASE) PO PRN ×3 (01:26→15:53)
--- NOTE | 2022-12-14 06:57 | Orthopedic Progress Note ---
Date of Service December 14, 2022 Assessment & Plan (1) History of total right knee replacement: Plan: POD #2 s/p Right TKA pt/ot dvt proph with CHACE/SCD/Elquis bid x 1 month CM consulted for poss rehab placement, he is s/p BKA on his left leg and uses a prosthesis. will benefit from rehab, awaiting auth Admission and Anticipated Discharge Date Admission Date: December 12, 2022 Subjective POD #2 s/p Right TKA Review of Systems Review of Systems: All systems reviewed & are unremarkable except as noted in HPI & below Constitutional: no fever and no chills Respiratory: no cough and no dyspnea Cardiovascular: no chest pain, no dyspnea and no orthopnea Gastrointestinal: no abdominal pain, no nausea and no vomiting Physical Exam Physical Exam: Vital Signs Temp 36.5 C 12/13/22 21:14 Pulse 64 12/13/22 21:14 Resp 18 12/13/22 21:14 BP 162/65 H 12/13/22 21:14 Pulse Ox 99 12/13/22 21:14 O2 Del Method Room Air 12/13/22 21:14 O2 Flow Rate 7 12/12/22 11:05 Intake & Output 12/13/22 12/13/22 12/14/22 06:59 18:59 06:59 Intake Total 1000 / 2400 50 / 50 Output Total 140 / 520 465 / 815 350 / 815 Balance 860 / 1880 -415 / -765 -350 / -765 Intake: IV 1000 / 1200 Sodium Chlorid e 0.9% 1000ML 1, 1000 / 1000 000 ml @ 100 m ls/hr IV .Q10H [facility] Rx#:[id number] Oral 50 / 50 Output: Urine 375 / 675 300 / 675 Drain Output 140 / 215 90 / 140 50 / 140 Right Knee Hem ovac #1 140 / 215 90 / 140 50 / 140 Other: # Unmeasured Voi ds 1 Constitutional: WD/WN, vitals as above no acute distress Musculoskeletal: Right leg: NVDI, calf SNT, negative osmani sign. DP palpable, able to wiggle toes/ankle movement without difficulty. dressing clean dry and intact. expected post-operative bruising noted. Results & Data Vital Signs (Past 12 Hours) Vital Signs Temp Pulse Resp BP Pulse Ox O2 Del Method 12/13/22 21:00 Room Air 12/13/22 21:14 36.5 C 64 18 162/65 H 99 Room Air Laboratory Results Laboratory Results WBC 14.82 K/ul (4.8-10.8) H 12/13/22 05:49 RBC 4.09 M/uL (4.70-6.10) L 12/13/22 05:49 Hgb 13.0 g/dl (14.0-18.0) L 12/13/22 05:49 Hct 37.1 % (42.0-52.0) L 12/13/22 05:49 MCV 90.7 fL (80.0-100.0) 12/13/22 05:49 MCH 31.8 pg (25.0-34.0) 12/13/22 05:49 MCHC 35.0 g/dL (32.0-36.0) 12/13/22 05:49 RDW Std Deviation 42.5 fL (36.4-46.3) 12/13/22 05:49 RDW Coeff of Asad 12.8 % (11.5-14.5) 12/13/22 05:49 Plt Count 144 K/uL (130-400) 12/13/22 05:49 MPV 11.4 fL (9.4-12.4) 12/13/22 05:49 Sodium 135 mmol/L (136-145) L 12/13/22 05:49 Potassium 4.8 mmol/L (3.5-5.1) 12/13/22 05:49 Chloride 104 mmol/L (98-107) 12/13/22 05:49 Carbon Dioxide 25 mmol/L (21-32) 12/13/22 05:49 Anion Gap 6 (3-11) 12/13/22 05:49 BUN 26 mg/dl (6-23) H 12/13/22 05:49 Creatinine 1.25 mg/dl (0.6-1.4) 12/13/22 05:49 Est Cr Clr Drug Dosing 55.1 ml/min 12/13/22 05:49 Est GFR ( Amer) 61.3 ml/min 12/13/22 05:49 Est GFR (Non-Af Amer) 52.9 ml/min 12/13/22 05:49 BUN/Creatinine Ratio 20.8 (10-20) H 12/13/22 05:49 Glucose 165 mg/dl (70-99(Fasting)) H 12/13/22 05:49 POC Glucose 187 mg/dl (70-99) H 12/13/22 20:18 Calcium 8.9 mg/dl (8.6-10.3) 12/13/22 05:49 Total Bilirubin 0.7 mg/dl (0.2-1.0) 12/13/22 05:49 Direct Bilirubin 0.2 mg/dl (0-0.2) 12/13/22 05:49 AST 19 U/L (13-39) 12/13/22 05:49 ALT 9 U/L (7-52) 12/13/22 05:49 Alkaline Phosphatase 44 U/L (34-104) 12/13/22 05:49 Total Protein 5.9 gm/dl (6.0-8.3) L 12/13/22 05:49 Albumin 3.4 gm/dl (3.4-5.0) 12/13/22 05:49 Globulin 2.5 gm/dl (2.5-4.0) 12/13/22 05:49 Albumin/Globulin Ratio 1.4 (0.9-2) 12/13/22 05:49 Folate 8.92 ng/ml (>5.38) 12/13/22 05:49 SARS-CoV-2, RNA, NAAT NEGATIVE (NEGATIVE) 12/12/22 Unknown Impressions Knee X-Ray 12/12/22 11:11 TWO VIEWS RIGHT KNEE CLINICAL HISTORY: Postoperative examination. FINDINGS: AP and crosstable lateral portable views of the right knee are obtained. A right knee arthroplasty is in near anatomic alignment. There has been undersurface remodeling of the patella. No acute fracture is seen. There are expected postoperative changes around the knee including skin clips, a surgical drain, soft tissue edema, and subcutaneous gas. Advanced atherosclerotic calcification is seen in the popliteal artery. Clips are seen in the upper calf. IMPRESSION: Expected postoperative changes status post right knee arthroplasty. No acute fracture is seen. ACT 112: Negative or not required by law. Electronically signed by: Kaleb Becerra M.D. 12/12/2022 11:55 AM
[2022-12-14] MEDS: INSULIN ASPART PER UNIT CHARGE SC SCH ×4 (09:15→21:15)
[2022-12-14] MEDS: DOCUSATE SODIUM 100 MG CAP PO SCH ×2 (09:18→20:18)
[2022-12-14] MEDS: MULTIVITAMIN TAB PO SCH (09:18)
[2022-12-14] MEDS: APIXABAN 5 MG TABLET PO SCH ×2 (09:20→20:20)
[2022-12-14] MEDS: METOPROLOL SUCC 25MG EXT REL TAB PO SCH (09:21)
[2022-12-14] MEDS: allopurinoL 100 MG TAB PO SCH (09:22)
[2022-12-14] MEDS: FUROSEMIDE 40 MG TAB PO SCH (09:25)
[2022-12-14] MEDS: ASCORBIC ACID 500 MG TAB PO SCH (09:26)
[2022-12-14] MEDS: CHOLECALCIFEROL 1,000 UNITS 25 MCG TAB PO SCH (09:29)
[2022-12-14] MEDS: ZINC SULFATE 220 MG CAPSULE PO SCH (09:29)
[2022-12-14] MEDS: SENNA 8.6 MG TAB PO SCH (20:19)
[2022-12-14] MEDS: DONEPEZIL HCL 5 MG TAB PO SCH (20:20)
[2022-12-14] MEDS: LOSARTAN POTASSIUM 50 MG TAB PO SCH (20:21)
[2022-12-14] MEDS ORDERED: LANTUS PER UNIT CHARGE SC SCH (21:00)
[2022-12-15] MEDS: oxyCODONE HCL IR 5 MG TAB (IMMEDIATE RELEASE) PO PRN ×3 (07:52→20:30)
[2022-12-15] MEDS: CHOLECALCIFEROL 1,000 UNITS 25 MCG TAB PO SCH (07:54)
[2022-12-15] MEDS: MULTIVITAMIN TAB PO SCH (07:54)
[2022-12-15] MEDS: DOCUSATE SODIUM 100 MG CAP PO SCH ×2 (07:54→20:14)
[2022-12-15] MEDS: allopurinoL 100 MG TAB PO SCH (07:54)
[2022-12-15] MEDS: FUROSEMIDE 40 MG TAB PO SCH (07:55)
[2022-12-15] MEDS: METOPROLOL SUCC 25MG EXT REL TAB PO SCH (07:55)
[2022-12-15] MEDS: APIXABAN 5 MG TABLET PO SCH ×2 (07:55→20:15)
[2022-12-15] MEDS: ASCORBIC ACID 500 MG TAB PO SCH (07:55)
[2022-12-15] MEDS: ZINC SULFATE 220 MG CAPSULE PO SCH (07:56)
[2022-12-15] MEDS: INSULIN ASPART PER UNIT CHARGE SC SCH ×4 (08:32→20:31)
--- NOTE | 2022-12-15 09:13 | Orthopedic Progress Note ---
Date of Service December 15, 2022 Assessment & Plan (1) History of total right knee replacement: Plan: POD #3 s/p Right TKA pt/ot dvt proph with CHACE/SCD/Elquis bid x 1 month CM consulted for poss rehab placement, he is s/p BKA on his left leg and uses a prosthesis. will benefit from rehab, awaiting auth Waiting for a bed opening at [facility]. Transfer when bed available. Admission and Anticipated Discharge Date Admission Date: December 12, 2022 Subjective Postop day 3 Patient sitting up in bed awake and alert. Just finishing breakfast. No complaints this morning. Pain is controlled. Physical Exam Physical Exam: Indy dressing has some scant drainage noted but is otherwise intact and dry. Hemovac has been removed. Calves are soft nontender. Neurovascular intact. Toes are mobile. Results & Data Vital Signs (Past 12 Hours) Vital Signs Temp Pulse Resp BP Pulse Ox O2 Del Method 12/15/22 07:02 36.4 C L 67 18 164/66 H 96 Room Air
[2022-12-15] MEDS: SENNA 8.6 MG TAB PO SCH (20:14)
[2022-12-15] MEDS: DONEPEZIL HCL 5 MG TAB PO SCH (20:15)
[2022-12-15] MEDS: LOSARTAN POTASSIUM 50 MG TAB PO SCH (20:15)
[2022-12-15] MEDS ORDERED: LANTUS PER UNIT CHARGE SC SCH (21:00)
[2022-12-16] MEDS: INSULIN ASPART PER UNIT CHARGE SC SCH ×2 (08:27→12:35)
[2022-12-16] MEDS: ASCORBIC ACID 500 MG TAB PO SCH (08:28)
[2022-12-16] MEDS: allopurinoL 100 MG TAB PO SCH (08:28)
[2022-12-16] MEDS: APIXABAN 5 MG TABLET PO SCH (08:29)
[2022-12-16] MEDS: MULTIVITAMIN TAB PO SCH (08:29)
[2022-12-16] MEDS: CHOLECALCIFEROL 1,000 UNITS 25 MCG TAB PO SCH (08:30)
[2022-12-16] MEDS: FUROSEMIDE 40 MG TAB PO SCH (08:30)
[2022-12-16] MEDS: DOCUSATE SODIUM 100 MG CAP PO SCH (08:30)
[2022-12-16] MEDS: METOPROLOL SUCC 25MG EXT REL TAB PO SCH (08:31)
[2022-12-16] MEDS: ZINC SULFATE 220 MG CAPSULE PO SCH (08:31)
[2022-12-16] MEDS: oxyCODONE HCL IR 5 MG TAB (IMMEDIATE RELEASE) PO PRN ×2 (08:38→12:31)
--- NOTE | 2022-12-16 12:44 | Orthopedic Progress Note ---
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 will benefit from rehab, awaiting auth Plan for [facility] today Admission and Anticipated Discharge Date Admission Date: December 15, 2022 Subjective Patient seen and examined, no acute events overnight. Pain well controlled. Physical Exam Constitutional: No acute distress, alert oriented person place time Musculoskeletal: Right extremity -Dressing clean dry and intact -Sensation intact to light touch s/spn/dpn/t/s - fires ta/ehl/gsc + dp/pt Results & Data Vital Signs (Past 12 Hours) Vital Signs Temp Pulse Pulse Pulse Pulse Resp BP 12/16/22 11:04 36.8 C 72 84 73 74 20 162/59 H 12/16/22 07:43 36.8 C 74 20 BP Pulse Ox O2 Del Method 12/16/22 11:04 145/66 H 96 12/16/22 07:43 145/66 H 96 Room Air
--- NOTE | 2022-12-19 11:06 | Discharge Summary ---
Date of Service December 19, 2022 Admission HPI Per Admitting Provider Nick is an 82-year-old male who presents for preop evaluation prior to right total knee replacement. He states he is having pain in his knee for many years now which is gradually worsened and is now affecting his daily activities. 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 He is limited anti-inflammatory use secondary to using Plavix and Eliquis. Admission Exam Per Admitting Provider Physical Exam: HT: 5ft 8in WT: 113.9kg Constitutional: WD/WN, vitals as above no acute distress Respiratory: normal respiratory effort, lungs clear to auscultation no respiratory distress, no labored breathing and does not use accessory muscles Cardiovascular: RRR, no murmur, no edema Gastrointestinal (Abdomen): normal bowel sounds, soft, nontender, no hepatosplenomegaly Musculoskeletal: Knee: + knee abnormal to inspection (RIGHT KNEE: ), + effusion (+1 effusion), + limited ROM of knee (ROM 0/3/110), + knee ROM with crepitation, + joint line tenderness (medial joint line) and + Fabienne's sign positive; no deformity, no skin erythema, no ecchymosis, no valgus laxity, no varus laxity, anterior drawer test negative, Fidel's sign negative and pivot shift test negative Principal Diagnosis Right Knee Osteoarthritis Discharge Data Allergies Allergy/AdvReac Type Severity Reaction Status Date / Time ibuprofen Allergy Unknown HIVES Verified 12/12/22 06:58 NSAIDS (Non-Steroidal Allergy Unknown BUMPS ON Verified 12/12/22 06:58 Anti-Inflamma HAND Consultations 12/12/22 12:50 Consult Hospitalist Routine Procedures Performed Operation Date: 12/12/22 08:35 Actual Procedures p Right Total Knee Arthroplasty, Cemented(Right) - Rohan Hernández DO Ordered Studies 12/12/22 05:00 US - OR guided needle placemen Routine Hospital Course (1) History of total right knee replacement: Patient was admitted on the above-noted date and had the above-noted procedure performed which she tolerated well. On his first postoperative day, vital signs were stable and he was afebrile. Patient was feeling well. Pain was contro lled. Dressings were clean, dry, and intact. Calves were soft nontender. Neurovascular was intact. Toes were mobile. Hemoglobin was stable. He had a mild leukocytosis likely secondary from preoperative steroids and/or surgical stress. Patient was remaining asymptomatic. He was started on PT and OT protocols and continued on DVT prophylaxis. Patient had history of right BKA with use of prosthesis. He was continued on DVT prophylaxis and pain management. Over the next several days the patient continued to remain medically stable as well as orthopedically stable. He was seen by the hospitalist service and was remaining stable. He was progressing slowly with his physical therapy and was felt he would need a rehab type facility. [facility] rehab was chosen and authorization was applied for. A bed became available by postop day 3 and he was continue to remain stable. He was then transferred to [facility] rehab for further physical therapy and care. Total Time Total Time Spent Total Time Spent (In Minutes): 10 Discharge Plan Discharge Items Patient Disposition: Transfer Inpatient Rehab Fac Reason For Visit: RIGHT KNEE OSTEOARTHRITIS Discharge Diagnosis: Right knee osteoarthritis Activity: Per Instructions section Weightbearing Comment: as tolerated with walker Non-emergency contact: Surgeon Call non-emergency contact if: you have any medication questions, your pain is not controlled, your temperature is above 101.5, your wound has increased redness and your wound has increased drainage Follow-up/Referrals: Rohan Hernández DO [Surgeon] - ( follow-up with Dr. Hernández or his PA in 2 weeks from the day of surgery for your first postoperative visit.) Abdulaziz Ibrahim [Primary Care Provider] - Diet: Carb Consistent or DM2 Addtl Attending Provider Instructions: ACTIVITY RECOMMENDATIONS: SELF CARE INSTRUCTIONS AFTER TOTAL KNEE REPLACEMENT A. You may need to continue a physical therapy program after discharge from the hospital. There are several options available to you. Your doctor will assist you in selecting the best one for you. 1. An out-patient facility 2 to 3 times a week for therapy or home therapy. 2. Continue working on all exercises taught to you in the hospital. Your goals should be to increase bending of your knee to 90 degrees and beyond and to fully straighten your knee. B. You may progress at your own pace from walking with a walker or crutches to a cane; then to no assistive devices. C. Make walking a part of your daily routine. Be up as much as comfortable with rest periods throughout the day. Rest with leg elevation is very important. Use the ice wrap frequently for the first 3-4 weeks. D. There are no restrictions on activities. You may ride in a car, shop, participate in food science technician and all social activities. E. Wear the long elastic stockings (CHACE hose) 20 hours a day for 2 weeks after surgery. They can be removed several times a day for laundering and for a bath. F. You may shower, no tub baths until cleared by your doctor. SPECIAL CARE INSTRUCTIONS: VERY IMPORTANT TO READ AND REVIEW A. There are a few signs you need to watch for after you are home. Call [facility] if you notice any of the followin. Increased severe knee pain. Some pain is expected especially when you exercise. 2. Increased swelling in your leg or knee; pain or swelling of the calf muscle in either lower leg. 3. Any fluid drainage from the incision. 4. Shortness of breath or chest pain. B. Please call [facility] at if you have any concerns or questions about your operation or recovery. The doctor or his nurse will return your call promptly. C. You must take antibiotics before dental work, bladder, bowel or other surgery. Your doctor will provide you with a permanent care to carry describing this precaution. IMPORTANT: * REMEMBER TO TAKE YOUR PLAVIX AND ELIQUIS WHEN YOU RETURN HOME. . * CALL IF INCREASED PAIN, REDNESS, DRAINAGE OR FEVER GREATER THAT 101. * WEAR CHACE HOSE 20 HOURS PER DAY FOR 2 WEEKS. * MARITO Dressing - This is a large suction dressing covering your incision. This will help pull any excess drainage from the wound and allow your incision to heal properly. You may shower with this if you can keep the unit outside of the shower. If any bleeding or leakage is noted please call your doctor's office. This will remain on your incision for 7 days and then should be removed. This can be done yourself or by the home nursing staff if applicable. The entire unit is disposable once removed. Once removed, keep incision clean and dry. If redness or drainage is noted, please call your surgeon. . FOLLOW UP VISIT: If appointment is not already scheduled: Please call [facility] to make a follow-up appointment for 2 weeks after your surgery at . Pending Studies at Discharge: No Stand-Alone Forms: My [facility] Skilled Items Patient informed of condition?: Yes DNR: No Discharge Level of Care: Acute rehab Communicable Disease: No Discharge Prognosis: Stable Lines: None Urinary Catheter: No Medications and DC Order Prescriptions: New Eliquis 5 mg Tablet 5 mg PO BID 30 Days Qty: 60 0RF acetaminophen 500 mg tablet 1,000 mg PO Q8 21 Days Qty: 126 0RF cefadroxil 500 mg capsule 500 mg PO BID 14 Days Qty: 28 0RF docusate sodium 100 mg Capsule 100 mg PO BID 10 Days Qty: 20 0RF oxycodone 5 mg tablet 5 - 10 mg PO Q6H PRN (Reason: pain) Qty: 30 0RF Rx Instructions: ongoing therapy, supervising dr giovanny hernández. max 6 tabs in 24 hours Continued furosemide [Lasix] 40 mg Tablet 40 mg PO QAM donepezil 5 mg Tablet 5 mg PO HS allopurinol 100 mg Tablet 150 mg PO QAM glimepiride 2 mg Tablet 2 mg PO QAM Rx Instructions: administer with breakfast ascorbic acid (vitamin C) [Vitamin C] 500 mg Tablet 500 mg PO QAM zinc 50 mg Tablet 50 mg PO QAM metoprolol succinate 25 mg Tablet Extended Release 24 Hr 25 mg PO QAM losartan 100 mg Tablet 100 mg PO HS vitamin A-vitamin C-vit E-min Tablet 1 tab PO QAM cholecalciferol (vitamin D3) [Vitamin D3] 50 mcg (2,000 unit) Capsule 50 mcg PO QAM Repatha SureClick 140 mg/mL Pen Injector 140 mg SUBCUT UD Patient Comments: ONCE EVERY OTHER WEEK ON A SUNDAY. NEXT SHOT IS DUE NOV 21 2022. Held clopidogrel [Plavix] 75 mg Tablet 75 mg PO QAM Hold Instructions: Resume on 01/13/23. Discontinued celecoxib 200 mg Capsule 200 mg PO UD PRN (Reason: Pain) Eliquis 5 mg Tablet 5 mg PO HS Discharge Orders: Discharge Order (Routine); Ordered 12/16/22 Ordered By: Jean Tejeda Admission Data Admit Date/Time: 12/15/22 12:06 Attending Provider: Rohan Hernández Admit Provider: Rohan Hernández Primary Care Provider: Abdulaziz Ibrahim Other Providers: Rohan Cruz ; Abdulaziz Hurt ; [facility] Other Interventions: Discharge Summary Assessment (RN) Last Done: 12/16/22 11:04
== END 2022-12-16 14:20 | DRG 470 ==
LOC: ASU 06:28 → 3E 06:28